=== PATIENT | male | born 1975 | race Hispanic/Latino ===

== ENCOUNTER 2019-09-01 07:00 | Day surgery (SDC) | payer BC ==
[2019-08-31 10:18] VITALS: BMI 26.6
[2019-09-01] MEDS ORDERED: Bupivacaine PF 0.5% 30 ML VIAL ONE (07:49)
[2019-09-01] MEDS ORDERED: Lidocaine 1% w/Epinephrine 1:100K 20 ML VIAL ONE (07:49)
[2019-09-01 07:57] LABS: #Eosinphils 0.2 thou/uL (0.0-0.7); #Lymphocytes 1.9 thou/uL (1.20-3.40); #Monocytes 0.7 thou/uL (0.11-0.59); %Basophils 0.6 % (0.0-1.0); %Eosinophils 4.9 % (0.0-10.0); %Lymphocytes 39.2 % (21.0-51.0); %Monocytes 13.7 % (0.0-10.0); %Neutrophils 41.5 % (42.0-75.0); Hemoglobin 15.3 g/dL (14.0-18.0); Mean Corpuscular HGB CONC 34.7 g/dL (32.0-36.0); Mean Corpuscular Hemoglobin 32.9 pg (27.0-31.0); Mean Corpuscular Volume 94.8 fL (78.0-98.0); Mean Platelet Volume 8.8 fL (7.4-10.4); Platelet Count 194 thou/uL (130-400); RBC Distribution Width 10.9 % (11.5-14.5); Red Blood Cell (RBC) Count 4.65 mill/uL (4.70-6.10); White Blood Cell (WBC) Count 4.8 thou/uL (4.8-10.8)
[2019-09-01] MEDS ORDERED: Fentanyl 100 MCG/2 ML VIAL ONE ×3 (08:29→10:42)
[2019-09-01] MEDS ORDERED: Dexamethasone 20 MG/5 ML VIAL ONE (10:24)
[2019-09-01] MEDS ORDERED: Lidocaine 1% PF 5 ML VIAL ONE (10:24)
[2019-09-01] MEDS ORDERED: PROPOFOL 200 MG/20 ML VIAL ONE (10:24)
[2019-09-01] MEDS ORDERED: Ondansetron PF 4 MG/2 ML Vial ONE (10:24)
[2019-09-01] MEDS ORDERED: Ketorolac Tromethamine 30 MG/ML VIAL ONE (10:24)
--- NOTE | 2019-09-03 09:33 | OP ---
DATE OF PROCEDURE: 09/01/2019 PREOPERATIVE DIAGNOSIS: Right tennis elbow. POSTOPERATIVE DIAGNOSIS: Right tennis elbow. PROCEDURE PERFORMED: Right tennis elbow release. MANAGER PHYSICAL: None. ANESTHESIOLOGIST: Jordy uBrr MD ANESTHESIA: The patient received a LMA. He received 8 mL of lidocaine 1% with epinephrine. ESTIMATED BLOOD LOSS: Less than 2 mL. TOURNIQUET TIME: 20 minutes at 250 mmHg. ANTIBIOTICS: Ancef 2 g. COMPLICATIONS: None. HISTORY OF PRESENT ILLNESS: Mr. Al is a 44-year-old male with tennis elbow for greater than 7 years. He has had several injections, undergone stretching of his right hand and taken NSAIDs . I discussed risks and benefits of the release to include, pain, scar, bleeding, infection, continued pain, decreased range of motion and strength, and need for further surgery. The patient understood the risks and benefits and elected to proceed. DESCRIPTION OF PROCEDURE: Time-out was performed designating the patient's right upper extremity as the operative site based on site, consents, and marking. After time-out, the patient's right upper extremity was prepped and draped in sterile fashion. Tourniquet was brought up and left for a total of 20 minutes, made incision obliquely down over the patient's lateral epicondyle down through skin, dissected and found the fascial plane. I came down onto the lateral epicondyle moving proximally to a portion of the brachioradialis musculature to ensure that it was completely denuded moving distally, ensured that I was releasing the extensor carpi radialis longus as well as the brevis, ensured that I could see the shiny edge of the capsule along the lateral epicondyle as it dipped down, took a section of the undersurface of the fascial plane of the brevis tendon out. I curetted and rongeured off the lateral epicondyle. I washed. I closed with 0 Vicryl. I injected 4 mL lidocaine 1% with epinephrine subcu. I then closed with 2-0 and 3 -0 nylon. I injected subcu with another 4 mL for a total of 8 mL of 1% lidocaine subcu. I let the tourniquet down after 20 minutes. The patient is in a sling, begin elbow, wrist, and hand motion, wearing the sling protection. He will be discharged home on [place]. He will follow up with me in about 10 to 12 days for suture removal. Job ID: [id number] [id number]
== END 2019-09-01 12:05 | disposition home or self-care (01) ==
LOC: SDC 07:00
PROVIDERS: ATTEND Orthopaedic Surgery
PROC: 0JBD0ZZ Excision of Right Upper Arm Subcutaneous Tissue and Fascia, Open Approach (ICD-10-PCS; principal; 2019-09-01)
PROC: 0LN30ZZ Release Right Upper Arm Tendon, Open Approach (ICD-10-PCS; principal; 2019-09-01)
DX: M77.11 Lateral epicondylitis, right elbow (principal); Z98.890 Other specified postprocedural states
CPT/HCPCS: 85025; J0690; J1100; J1885; J2001; J2405; J2704; J3010; S0020

== ENCOUNTER 2023-07-09 07:59 | Day surgery (SDC) | payer BC, OTHER ==
[2023-07-06 11:04] VITALS: BMI 27.1
[2023-07-09] MEDS ORDERED: Ropivacaine 0.5% HCl/PF (150 MG/30 ML VIAL) ONE (08:52)
[2023-07-09] MEDS ORDERED: Midazolam HCl 2 mg/2 ml Vial ONE (08:52)
[2023-07-09] MEDS ORDERED: fentaNYL 50 mcg/mL 1 mL Vial ONE (08:52)
[2023-07-09] MEDS ORDERED: Ropivacaine 0.2% 550 ML 550 ML NERVE BLCK SCH (09:45)
[2023-07-09] MEDS ORDERED: Bupivacaine 0.25% HCL 30 ML VIAL ONE (10:02)
[2023-07-09] MEDS ORDERED: EPINEPHrine 1 MG/ML VIAL ONE (10:02)
[2023-07-09] MEDS ORDERED: Sodium Chloride 0.9% 100 ML ONE (10:08)
[2023-07-09] MEDS ORDERED: CEFAZOLIN 2 GM VIAL ONE (10:08)
[2023-07-09] MEDS ORDERED: HYDROmorphone 2 MG/ML VIAL ONE (10:10)
[2023-07-09] MEDS ORDERED: Lidocaine 2% PF 5 ML VIAL ONE (10:10)
[2023-07-09] MEDS ORDERED: PROPOFOL 20 ML ONE (10:10)
[2023-07-09] MEDS ORDERED: Promethazine HCl 25 MG/ML VIAL IM PRN (10:30)
[2023-07-09] MEDS ORDERED: HYDROcodone/Acetaminophen 10/325 mg Tablet PO PRN ×2 (10:30)
[2023-07-09] MEDS ORDERED: traMADol HCl 50 MG TAB PO PRN ×2 (10:30)
[2023-07-09] MEDS ORDERED: Ondansetron PF 4 MG/2 ML Vial IVP PRN (10:30)
[2023-07-09] MEDS ORDERED: Zolpidem Tartrate 5 MG TAB PO PRN (10:30)
[2023-07-09] MEDS ORDERED: Ketorolac Tromethamine 30 MG (1 mL) VIAL ONE (10:34)
[2023-07-09] MEDS ORDERED: Dexamethasone 20 MG/5 ML VIAL ONE (10:34)
[2023-07-09] MEDS ORDERED: Ondansetron PF 4 MG/2 ML Vial ONE (10:34)
[2023-07-09] MEDS ORDERED: ePHEDrine Sulfate 50 MG/10 ML VIAL ONE (10:52)
[2023-07-09] MEDS ORDERED: Ketorolac Tromethamine 30 MG (1 mL) VIAL IVP SCH (12:00)
== END 2023-07-09 14:00 | disposition home or self-care (01) ==
LOC: SDC 07:59
PROVIDERS: ATTEND Orthopaedic Surgery
PROC: 0PB Upper Bones, Excision (ICD-10-PCS; principal; 2023-07-09)
PROC: 0LU247Z Supplement Left Shoulder Tendon with Autologous Tissue Substitute, Percutaneous Endoscopic Approach (ICD-10-PCS; principal; 2023-07-09)
DX: M75.122 Complete rotator cuff tear or rupture of left shoulder, not specified as traumatic (principal); M19.012 Primary osteoarthritis, left shoulder; Z98.890 Other specified postprocedural states; Z79.899 Other long term (current) drug therapy
CPT/HCPCS: A4306; C1713; J0171; J1100; J1170; J1885; J2001; J2250; J2405; J2704; J2795; J3010; J3490; S0020